=== PATIENT | male | born 1960 | race Caucasian/White ===

== ENCOUNTER 2017-01-04 07:27 | Emergency (ER) | payer SELFPAY ==
[2017-01-04 07:33] VITALS: BP 140/83; PULSE 120; RESP 16; TEMP 98.1; O2SAT 98
[2017-01-04 07:38] VITALS: PULSE 119
[2017-01-04] MEDS ORDERED: BACT800T5 PO (07:50)
[2017-01-04] MEDS ORDERED: MUPI2%T TOPICAL (07:50)
--- NOTE | 2017-01-04 07:50 | PD ---
HPI Chief Complaint: Skin Problem Time Seen by Provider: 07:41 Travel History International Travel<30 days: No Contact w/Intl Traveler<30days: No History of Present Illness HPI 56-year-old male presents to the emergency Department with various skin sores which have developed over the past week. Patient is a type II diabetic, with possible history of MRSA several years ago. Patient states he thought they were just small insect bites but over the past week they've become more widespread and erythematous and painful. Patient has some all ranges body , but mainly on his extremities. All them seem to be superficial without abscess formation. Although seemed to be draining and crusting. Pain is currently 6 out of 10. He denies significant fever, but has noted his blood sugar is elevated. Patient has no known drug allergies. [facility] Social History Alcohol Use: Yes Tobacco Use: Yes Substance Use: No Allergies-Medications (Allergen,Severity, Reaction): Coded Allergies: No Known Allergies (Unverified , 01/04/17) Review of Systems Except as stated in HPI: all other systems reviewed are Neg General / Constitutional: No: Fever Eyes: No: Visual changes HENT: No: Headaches Cardiovascular: No: Chest Pain or Discomfort Respiratory: No: Shortness of Breath Gastrointestinal: No: Abdominal Pain Genitourinary: No: Dysuria Musculoskeletal: No: Pain Skin: Positive Lesions, No Rash Neurologic: No: Weakness Psychiatric: No: Depression Endocrine: No: Polydipsia Hematologic/Lymphatic: No: Easy Bruising Physical Exam Narrative GENERAL: Patient appears in no acute distress. SKIN: Warm and dry. Patient is greater than 10 1/2 dollar size crusting and oozing erythematous superficial lesions to both his upper and lower extremities. These appear consistent with MRSA. No obvious abscesses are noted. HEAD: Atraumatic. Normocephalic. EYES: Pupils equal and round. No scleral icterus. No injection or drainage. ENT: No nasal bleeding or discharge. Mucous membranes pink and moist. Pharynx is clear. Airway is patent. NECK: Trachea midline. Supple and nontender. No significant lymphadenopathy. CARDIOVASCULAR: Regular rate and rhythm. RESPIRATORY: No accessory muscle use. Clear to auscultation. Breath sounds equal bilaterally. MUSCULOSKELETAL: Extremities without clubbing, cyanosis, or edema. No obvious deformities. NEUROLOGICAL: Awake and alert. No obvious cranial nerve deficits. Motor grossly within normal limits. Five out of 5 muscle strength in the arms and legs. Normal speech. PSYCHIATRIC: Appropriate mood and affect; insight and judgment normal. Data Data Last Documented VS Vital Signs Date Time Temp Pulse Resp B/P (MAP) Pulse Ox O2 Delivery O2 Flow Rate FiO2 01/04/17 07:38 119 01/04/17 07:33 98.1 16 140/83 (102) 98 MDM Medical Decision Making Medical Screen Exam Complete: Yes Emergency Medical Condition: Yes Differential Diagnosis Insect bites. Cellulitis. MRSA. Narrative Course Patient is treated with Bactrim DS twice a day 10 days. Patient also given Bactroban ointment twice daily 10 days. One refill was given. Patient wash all areas with soap and water twice daily and cover with ointment. Patient to follow up with local primary care, or follow-up here if worsening symptoms develop. Diagnosis Primary Impression: Cellulitis Qualified Codes: L03.119 - Cellulitis of unspecified part of limb Additional Impression: MRSA cellulitis Referrals: [facility] Patient Instructions: Cellulitis (ED), General Instructions, MRSA (Methicillin- Resistant Staphylococcus Aureus) (ED) Additional Instructions: Patient is treated with Bactrim DS twice a day 10 days. Patient also given Bactroban ointment twice daily 10 days. One refill was given. Patient wash all areas with soap and water twice daily and cover with ointment. Patient to follow up with local primary care, or follow-up here if worsening symptoms develop. Med/Other Pt SpecificInfo: Prescription(s) given Disposition: 01 DISCHARGE HOME Condition: Stable Joseph Munoz Jan 04, 2017 07:50
[2017-01-04] MEDS ORDERED: METF500T PO (08:05)
== END 2017-01-04 08:29 | disposition home or self-care (01) ==
LOC: NEPK 07:27
DX: L03.114 Cellulitis of left upper limb (principal); L03.113 Cellulitis of right upper limb; L03.116 Cellulitis of left lower limb; L03.115 Cellulitis of right lower limb; B95.0 Streptococcus, group A, as the cause of diseases classified elsewhere; B95.62 Methicillin resistant Staphylococcus aureus infection as the cause of diseases classified elsewhere
CPT/HCPCS: 87070; 99283